=== PATIENT | female | born 1990 | race Two or more races ===

== ENCOUNTER 2023-04-05 03:31 | Inpatient (IN) | payer OTHER ==
[~2023-04-05] VITALS: Ht 160 cm; Wt 76.2 kg
[2023-04-05] MEDS ORDERED: PRENATAL TABLE1 EAC1 PO (05:03)
[2023-04-05] MEDS ORDERED: CHILDREN'S ASPI81 MG PO (05:03)
== END 2023-04-07 14:43 | disposition home or self-care (01) | DRG 807 ==
LOC: LDR 03:31 → OB/GYN 12:04
PROVIDERS: Obstetrics & Gynecology Gynecology; ADMIT Obstetrics & Gynecology Maternal & Fetal Medicine; ATTEND Obstetrics & Gynecology Maternal & Fetal Medicine
PROC: 10E0XZZ Delivery of Products of Conception, External Approach (ICD-10-PCS; principal; 2023-04-05)
PROC: 0HQ9XZZ Repair Perineum Skin, External Approach (ICD-10-PCS; 2023-04-05)
PROC: 4A1HXCZ Monitoring of Products of Conception, Cardiac Rate, External Approach (ICD-10-PCS; 2023-04-05)
DX: O70.1 Second degree perineal laceration during delivery (principal); Z37.0 Single live birth; Z3A.35 35 weeks gestation of pregnancy; Z20.822 Contact with and (suspected) exposure to COVID-19